=== PATIENT | female | born 1940 ===

== ENCOUNTER 2021-09-14 20:53 | Outpatient (REF) | payer SELFPAY ==
[2021-09-14 21:25] LABS: Abs Immature Grans 0.02 10^3/uL (0.0-0.06); Absolute Basophil Count 0.03 10^3/uL (0.0-0.2); Absolute Eosinophil Count 0.24 10^3/uL (0.0-0.7); Absolute Lymphocyte Count 0.32 10^3/uL (1.2-3.4); Absolute Monocyte Count 0.67 10^3/uL (0.1-0.8); Absolute Neutrophil Count 5.36 10^3/uL (1.2-6.7); Basophils % 0.5; Eosinophils % 3.6; HCT 32.8 % (36.0-46.0); HGB 10.5 g/dL (11.2-15.7); Immature Grans % 0.3; Lymphocytes % 4.8; MCH 32.9 pg (27.0-33.0); MCV 103 fL (80-95); MPV 10.4 fL (8.0-11.0); Monocytes % 10.1; Neutrophils % 80.7; Platelet Count 139 10^3/uL (130-400); RBC 3.19 10^6/uL (3.93-5.22); RDW-SD 64.1 fL; WBC 6.64 10^3/uL (4.4-10.8)
[2021-09-14 22:07] LABS: ALT 23 U/L (14-59); AST 36 U/L (15-37); Albumin 2.9 g/dL (3.4-5.0); Alkaline Phosphatase 268 U/L (46-116); Anion Gap 9.2 mmol/L (3-11); BUN 31 mg/dL (7-18); Bilirubin, Total 0.7 mg/dL (0.2-1.0); CO2 30.8 mmol/L (21.0-32.0); Calcium 8.9 mg/dL (8.5-10.1); Chloride 93 mmol/L (98-107); Estimated GFR 11.73 (mL/min/1.73m2); Glucose 155 mg/dL (74-106); Sodium 133 mmol/L (136-145); Total Protein 6.2 g/dL (6.4-8.2)
[2021-09-15 05:27] LABS: CREATININE 3.7 mg/dL (0.55-1.02)
== END 2021-09-14 20:54 | disposition home or self-care (01) ==
LOC: LBN 20:53
PROVIDERS: Visit Provider Nurse Practitioner Family
DX: N18.6 End stage renal disease (principal); E11.69 Type 2 diabetes mellitus with other specified complication
CPT/HCPCS: 80053; 85025

== ENCOUNTER 2021-10-22 18:13 | Outpatient (REF) | payer MEDICARE, BC, SELFPAY ==
[2021-10-22 19:23] LABS: C Diff PCR Negative (Negative)
== END 2021-10-22 18:14 | disposition home or self-care (01) ==
LOC: LBN 18:13
PROVIDERS: Visit Provider Nurse Practitioner Family
DX: R19.7 Diarrhea, unspecified (principal)
CPT/HCPCS: 87493

== ENCOUNTER → 2021-10-25 13:23 | Outpatient (BNVA) | payer MEDICARE, BC, SELFPAY | PROVIDERS: Visit Provider Surgery | DX: Z45.2 Encounter for adjustment and management of vascular access device (principal) | CPT/HCPCS: 36590; 99204 ==

== ENCOUNTER 2021-11-16 21:17 | Outpatient (REF) | payer MEDICARE, BC, SELFPAY ==
[2021-11-16 22:21] LABS: C Diff PCR Negative (Negative)
== END 2021-11-16 21:18 | disposition home or self-care (01) ==
LOC: LBN 21:17
PROVIDERS: Visit Provider Nurse Practitioner Family
DX: R19.7 Diarrhea, unspecified (principal)
CPT/HCPCS: 87493

== ENCOUNTER 2021-11-29 12:25 | Emergency (ER) | payer MEDICARE, BC, SELFPAY ==
[2021-11-29] VITALS (57 sets, daily range): BP systolic 93–116; BP diastolic 36–79; PULSE 68–198; RESP 16–31; TEMP 36.7; O2SAT 90–98
--- NOTE | 2021-11-29 14:00 | DI.RAD_ITS ---
Exam(s) XR PORTABLE CHEST AP EXAM: XR PORTABLE CHEST AP CLINICAL HISTORY: SOB. TECHNIQUE: 2D digital imaging was performed. COMPARISON: No exams were available for comparison FINDINGS: Single AP portable view. Left of center subcutaneous cardiac loop detector noted. Mild cardiomegaly. The mediastinum is not widened. Mild pulmonary venous hypertension pattern. No brien airspace pulmonary edema. No Celestino B lines. No pleural effusions. IMPRESSION: Mild pulmonary venous hypertension pattern. No brien airspace pulmonary edema. No pleural effusions . DATA REPOSITORY: RADIATION DOSE DELIVERED: All CT scans at this facility use at least one of these dose optimization techniques: automated exposure control; mA and/or kV adjustment per patient size (includes targeted e xams where dose is matched to clinical indication); or iterative reconstruction.
[2021-11-29 14:13] LABS: Abs Immature Grans 0.06 10^3/uL (0.0-0.06); Absolute Basophil Count 0.02 10^3/uL (0.0-0.2); Absolute Eosinophil Count 0.05 10^3/uL (0.0-0.7); Absolute Lymphocyte Count 0.16 10^3/uL (1.2-3.4); Absolute Monocyte Count 0.91 10^3/uL (0.1-0.8); Basophils % 0.3; Eosinophils % 0.7; HCT 32.8 % (36.0-46.0); HGB 10.9 g/dL (11.2-15.7); Immature Grans % 0.8; Lymphocytes % 2.2; MCH 32.7 pg (27.0-33.0); MCHC 33.2 % (32.0-36.0); MCV 99 fL (80-95); MPV 10.3 fL (8.0-11.0); Monocytes % 12.3; Neutrophils % 83.7; Platelet Count 117 10^3/uL (130-400); RBC 3.33 10^6/uL (3.93-5.22); RDW 15.7 % (11.7-14.6); RDW-SD 56.3 fL
[2021-11-29 14:40] LABS: ALT 23 U/L (14-59); AST 26 U/L (15-37); Alkaline Phosphatase 220 U/L (46-116); Anion Gap 8.5 mmol/L (3-11); BUN 49 mg/dL (7-18); Bilirubin, Total 0.6 mg/dL (0.2-1.0); CO2 30.5 mmol/L (21.0-32.0); Calcium 8.7 mg/dL (8.5-10.1); Chloride 93 mmol/L (98-107); Estimated GFR 9.36 (mL/min/1.73m2); Glucose 97 mg/dL (74-106); Magnesium 1.6 mg/dL (1.8-2.4); Potassium 4.3 mmol/L (3.5-5.1); Sodium 132 mmol/L (136-145); Total Protein 6.8 g/dL (6.4-8.2); Troponin I < 50 ng/L (<or=60)
[2021-11-29 14:42] LABS: CREATININE 4.5 mg/dL (0.55-1.02)
[2021-11-29 14:48] LABS: Source Nasal/Nares
--- NOTE | 2021-11-29 14:52 | W.ED.GENAD ---
Discharge Plan Disposition Patient Disposition: [facility] Discharge Details Clinical Impression: Chronic kidney disease, stage 5, COVID-19, Acute respiratory distress, Hypotension Primary Care Provider: Unknown,Unknown ED Provider: Jayy Desir Home Meds and New Rx's Prescriptions: No Action calcitriol 0.25 mcg capsule 0.25 mcg PO .3 times a week Rx Instructions: , and saturday prior to dialysis Allergy Eye (naphazoline-phen) 0.025-0.3 % drops 1 drp ophthalmic (eye) BID-QID PRN Santa-German Rx 1-60-300 mg-mg-mcg tablet 1 tab PO DAILY trazodone 150 mg tablet 75 mg PO QHS PRN trazodone 50 mg tablet 50 mg PO QHS PRN sennosides [Natural Senna Laxative] 8.6 mg tablet 17.2 mg PO BID polyethylene glycol 3350 [Miralax] 17 gram/dose powder 17 g PO DAILY midodrine 10 mg tablet 10 mg PO TID Rx Instructions: do not give last dose of day after 6PM or within 4 hrs of bedtime lidocaine 5 % adhesive patch,medicated 1 patch topical DAILY Rx Instructions: leave on most painful area for up to 12 hrs insulin lispro [Admelog U-100 Insulin lispro] 100 unit/mL solution 1 sliding scale dose subcut USEASDIRECTD cholecalciferol (vitamin D3) 25 mcg (1,000 unit) capsule 25 mcg PO DAILY acetaminophen [Tylenol Extra Strength] 500 mg tablet 1,000 mg PO Q6H PRN melatonin 3 mg tablet 3 mg PO HS PRN lidocaine-prilocaine 2.5-2.5 % cream 1 applic topical ONCE escitalopram oxalate [Lexapro] 10 mg tablet 10 mg PO DAILY levothyroxine 175 mcg capsule 175 mcg PO DAILY Combivent Respimat 20-100 mcg/actuation mist 1 puff inhalation QID Rx Instructions: space evenly during waking hours All Day Allergy (cetirizine) 10 mg capsule 10 mg PO DAILY PRN atorvastatin 40 mg tablet 40 mg PO QHS aripiprazole 5 mg tablet 5 mg PO DAILY simethicone [Gas Relief (simethicone)] 80 mg tablet,chewable 80 mg PO QHS pantoprazole [Protonix] 40 mg tablet,delayed release (DR/EC) 40 mg PO DAILY Sarna Original 0.5-0.5 % lotion 1 applic topical BID Discharge Data Discharge Date/Time-TO BE ENTERED AT DEPARTURE: 11/29/21 20:35 Medical Decision Making 1400 --81-year-old female with multiple medical problems including history of pulmonary hypertension, cardiomyopathy, chronic A. fib, diabetes, chronic kidney disease on hemodialysis, transferred from nursing facility with concern for hypoxia, low blood pressure, altered mentation today, questionable COVID-positive today. Oxygen is a administered nasal cannula and hypoxia improved. Now saturating in the low 90s on 3 L nasal cannula in no respiratory distress. Blood pressure improved without IV fluid. Stat COVID testing was sent. -- --Patient is COVID-positive given oxygen requirement, I will treat with remdesivir 200 mg IV as well as Decadron 6 mg IV. cxr interpreted by radiology: IMPRESSION: Mild pulmonary venous hypertension pattern.? No brien airspace pulmonary edema.? No pleural effusions. Consider acute pulmonary embolism. Plan to obtain CT of the chest. -- The radiologist recommended that I speak with nephrology to confirm that the patient could in fact have contrast. I spoke with Dr. Vidal, nephrology at [facility], and she knows the patient well and agrees that contrast is appropriate with no concerns. Plan to proceed with CT as ordered. 1715 --[facility] at [facility] cannot accept the patient in transfer. I called [facility] transfer center to request transfer. Awaiting callback. CT chest pending. Patient reassessed and mentating well on reassessment, patient respiratory status is stable saturating 100% on HPI General Mode of arrival: ambulatory. Date/Time Provider Initiated Documentation: 11/29/21 12:56. Limitations to Documentation: altered mental status. Information obtained by: patient and EMS. HPI Narrative: 81-year-old female with multiple medical problems including history of chronic A. fib, cardiomyopathy, atherosclerotic heart disease, chronic kidney disease on hemodialysis, pulmonary hypertension, diabetes, here with chief complaint of shortness of breath. Patient notes shortness of breath and difficulty breathing that is severe. History and review of systems is limited as patient is fatigued with altered mentation. Per nursing, nursing facility staff had stated that patient was COVID-negative and also later noted that she was COVID-positive. [facility] staff concerned complaining of shortness of breath and was found to be hypoxic(saturating in the 80s) and have lopw BP (sbp 89).. They note that she was more confused today. Patient apparently missed dialysis last week due to diarrhea. She did go to dialysis today but was only able to complete 3 to 4 hours. Related Data Home Medications Medication Instructions Recorded Confirmed acetaminophen 500 mg tablet 1,000 mg PO Q6H PRN 10/17/21 10/26/21 (Tylenol Extra Strength) aripiprazole 5 mg tablet 5 mg PO DAILY 10/17/21 10/26/21 atorvastatin 40 mg tablet 40 mg PO QHS 10/17/21 10/26/21 camphor-menthol 0.5 %-0.5 % lotion 1 applic topical BID 10/17/21 10/26/21 (Sarna Original) cetirizine 10 mg capsule (All Day 10 mg PO DAILY PRN 10/17/21 10/26/21 Allergy (cetirizine)) cholecalciferol (vitamin D3) 25 25 mcg PO DAILY 10/17/21 10/26/21 mcg (1,000 unit) capsule escitalopram oxalate 10 mg tablet 10 mg PO DAILY 10/17/21 10/26/21 (Lexapro) insulin lispro 100 unit/mL 1 sliding scale dose subcut 10/17/21 10/26/21 subcutaneous solution (Admelog USEASDIRECTD U-100 Insulin lispro) ipratropium 20 mcg-albuterol 100 1 puff inhalation QID 10/17/21 10/26/21 mcg/actuation mist for inhalation (Combivent Respimat) levothyroxine 175 mcg capsule 175 mcg PO DAILY 10/17/21 10/26/21 lidocaine 5 % topical patch 1 patch topical DAILY 10/17/21 10/26/21 lidocaine-prilocaine 2.5 %-2.5 % 1 applic topical ONCE 10/17/21 10/26/21 topical cream melatonin 3 mg tablet 3 mg PO HS PRN 10/17/21 10/26/21 midodrine 10 mg tablet 10 mg PO TID 10/17/21 10/26/21 naphazoline 0.025 %-pheniramine 1 drp ophthalmic (eye) BID-QID PRN 10/17/21 10/26/21 0.3 % eye drops (Allergy Eye (naphazoline-pheniramine)) pantoprazole 40 mg tablet,delayed 40 mg PO DAILY 10/17/21 10/26/21 release (Protonix) polyethylene glycol 3350 17 17 g PO DAILY 10/17/21 10/26/21 gram/dose oral powder (Miralax) sennosides 8.6 mg tablet (Natural 17.2 mg PO BID 10/17/21 10/26/21 Senna Laxative) simethicone 80 mg chewable tablet 80 mg PO QHS 10/17/21 10/26/21 (Gas Relief (simethicone)) trazodone 150 mg tablet 75 mg PO QHS PRN 10/17/21 10/26/21 trazodone 50 mg tablet 50 mg PO QHS PRN 10/17/21 10/26/21 vitamin B comp no.3-folic acid 1 1 tab PO DAILY 10/17/21 10/26/21 mg-vit C 60 mg-biotin 300 mcg tablet (Santa-German Rx) calcitriol 0.25 mcg capsule 0.25 mcg PO .3 times a week 10/25/21 10/26/21 Allergies Allergy/AdvReac Type Severity Reaction Status Date / Time aspirin AdvReac Unknown Verified 10/25/21 13:28 General Stated Complaint: GenMedical KARINE: 3 Review of Systems All systems reviewed & are unremarkable except as noted in HPI and below Constitutional Constitutional: Denies fever(s) Cardiovascular Cardiovascular: Reports dyspnea Respiratory Respiratory: Reports dyspnea PFSH All Active Problems (Updated 11/29/21 @ 20:25 by Jayy Desir DO) COVID-19 (Acute) Acute respiratory distress (Acute) Hypotension (Acute) Type 2 diabetes mellitus (Acute) Pulmonary hypertension (Acute) Coagulation defect (Acute) Chronic a-fib (Acute) Cardiomyopathy (Acute) Atherosclerotic heart disease (Acute) Anemia (Chronic) Chronic kidney disease, stage 5 (Acute) Medical History Anxiety Depression Hyperlipidemia Hypothyroid Obesity Social History Smoking/Tobacco Use Status: Unknown Smoking risk assessment performed?: Yes Do you feel safe at home: Yes Exam Const General: cooperative, no acute distress and ill appearing Nutritional Appearance: well nourished Orientation: alert, oriented to person, not oriented to place, not oriented to time and confused HENMT Mouth: moist mucous membranes Eyes Conjunctivae: normal conjunctivae Sclera: normal sclerae Neck Neck: trachea midline and supple Resp Effort & Inspection: not labored Auscultation: rales bilaterally and no rhonchi Cardio Rate: regular rate and not tachycardic Rhythm: regular rhythm GI Palpation: soft, not firm, no guarding, no masses, not rigid and nontender Skin General skin exam: no rashes or lesions noted Neuro General: patient alert, patient awake, oriented Patient Orientation: Person and Confused and tone normal Cognition: abnormal cognition Other: Hortensia Extrem General: no calf tenderness and no edema Psych Appearance: grossly normal Mental Status: mental status grossly normal Course Vital Signs Vital signs: Vital Signs Temperature 36.7 C 11/29/21 12:27 Pulse 75 11/29/21 12:27 Respiratory Rate 26 H 11/29/21 12:27 Blood Pressure 99/51 L 11/29/21 12:27 Pulse Oximetry 90 L 11/29/21 12:27 Temperature 36.7 C 11/29/21 12:27 Temperature Source Temporal Artery Scan 11/29/21 12:27 Pulse 68 11/29/21 14:47 Pulse 104 H 11/29/21 14:47 Respiratory Rate 24 11/29/21 14:47 Respiratory Effort 11/29/21 12:42 Respiratory Depth Shallow 11/29/21 12:42 Blood Pressure 112/36 L 11/29/21 14:47 Blood Pressure Mean 57 11/29/21 14:47 Blood Pressure Position Supine 11/29/21 12:27 Pulse Oximetry 90 L 11/29/21 12:27 Oxygen Delivery Method Room Air 11/29/21 12:27 Oxygen Flow Rate 0 11/29/21 12:27 Lab/Test Results Lab/Test Results: 11/29/21 13:30 Blood Blood Culture - Pending 11/29/21 13:57 Blood Blood Culture - Pending Laboratory Tests Range/Units 11/29/21 11/29/21 11/29/21 13:30 13:30 14:45 WBC (4.4-10.8) 10^3/uL 7.40 RBC (3.93-5.22) 10^6/uL 3.33 L Hgb (11.2-15.7) g/dL 10.9 L Hct (36.0-46.0) % 32.8 L MCV (80-95) fL 99 H MCH (27.0-33.0) pg 32.7 MCHC (32.0-36.0) % 33.2 RDW (11.7-14.6) % 15.7 H Plt Count (130-400) 10^3/uL 117 L MPV (8.0-11.0) fL 10.3 Immature Gran % 0.8 Neutrophils % 83.7 Lymphocytes % 2.2 Monocytes % 12.3 Eosinophils % 0.7 Basophils % 0.3 Nucleated RBC % (0.0-0.3) % 0.0 Absolute Neutrophils (1.2-6.7) 10^3/uL 6.20 Absolute Lymphocytes (1.2-3.4) 10^3/uL 0.16 L Absolute Monocytes (0.1-0.8) 10^3/uL 0.91 H Absolute Eosinophils (0.0-0.7) 10^3/uL 0.05 Absolute Basophils (0.0-0.2) 10^3/uL 0.02 Sodium (136-145) mmol/L 132 L Potassium (3.5-5.1) mmol/L 4.3 Chloride (98-107) mmol/L 93 L Carbon Dioxide (21.0-32.0) mmol/L 30.5 Anion Gap (3-11) mmol/L 8.5 BUN (7-18) mg/dL 49 H Creatinine (0.55-1.02) mg/dL 4.5 H* Estimated GFR/1.73 m2 (mL/min/1.73m2) 9.36 Glucose (74-106) mg/dL 97 Calcium (8.5-10.1) mg/dL 8.7 Magnesium (1.8-2.4) mg/dL 1.6 L Total Bilirubin (0.2-1.0) mg/dL 0.6 AST (15-37) U/L 26 ALT (14-59) U/L 23 Alkaline Phosphatase (46-116) U/L 220 H Troponin I (<or=60) ng/L < 50 Total Protein (6.4-8.2) g/dL 6.8 Albumin (3.4-5.0) g/dL 3.0 L COVID-19 Source Nasal/Nares Sign Out Sign Out Data: Sign Out Comment: Follow-up on transfer placement for treatment of COVID, CHF in setting of end-stage renal disease on hemodialysis. Last updated by Leland Baird MD at 11/29/21 17:44
--- NOTE | 2021-11-29 15:00 | DI.CT_ITS ---
Exam(s) CT CHEST PE CTA EXAM: CT CHEST PE CTA CLINICAL HISTORY: shortness of breath, low bp. TECHNIQUE: Imaging Protocol: Axial CT angiography was performed with multi-slice acquisition and mu lti-planar and/or 3D reconstructions. CONTRAST MATERIAL: Intravenous: Omnipaque 350 Contrast volume:structured data in ml COMPARISON: No exams were available for comparison FINDINGS: CT angiography of the chest was performed with intravenous infusion of 82 cc of Omnipaque 350. There is mild cardiomegaly. Note is made of coronary artery calcification. There is an apparent implantable device in the right ventricular apex, please correlate with cardiology history. There is a poor inspiration with some crowding of pulmonary vessels. Small right pleural effusion no patsy. No gross pulmonary edema or focal consolidation.. Tracheobronchial tree appears intact. No evidence of pulmonary embolic disease. Thoracic aorta is of normal diameter, no thoracic aortic an eurysm or dissection, major branch vessels appear intact. No mediastinal or hilar adenopathy. Images obtained through the upper abdomen show unremarkable appearance of the visualized portions of the liver, the spleen appears mildly enlarged.. IMPRESSION: Cardiomegaly.. No evidence of pulmonary embolic disease. Implantable device in right ventricular apex, please correlate with a prior cardiology history. RADIATION DOSE DELIVERED: 363.25mGy.cm Total DLP 363.25mGy.cm Total DLP !Error CTDIvol DATA REPOSITORY: All CT scans at this facility are submitted to the National Radiology Data Registry (NRDR) Dose Index Registry (DIR) with the [employer] (ACR). RADIATION OPTIMIZATION: All CT scans at this facility use at least one of these dose optimization te chniques: automated exposure control; mA and/or kV adjustment per patient size (includes targeted exa ms where dose is matched to clinical indication); or iterative reconstruction.
[2021-11-29 15:21] LABS: Lactate 1.6 mmol/L (0.6-1.4)
[2021-11-29 15:28] LABS: COVID-19 PCR POSITIVE (Negative)
[2021-11-29] MEDS: Dexamethasone 10 MG/ML VIAL 6 MG IVP (15:38)
[2021-11-29] MEDS: REMDESIVIR 200 MG in Normal Saline 250 ML 250 MG IVPB (15:42)
--- NOTE | 2021-11-29 16:54 | NUR.NOTE ---
Nursing Note: PT HAS BELONGINGS WITH HER, DENIES CURRENT COMPLAINTS, REPEAT TROP DRAWN & SENT TO LAB, PT TO DI FOR ORDERED EXAM VIA STRETCHER.
[2021-11-29] MEDS: Omnipaque 350 MG/ML 100 ML BTL IJ (17:10)
--- NOTE | 2021-11-29 17:28 | NUR.NOTE ---
Nursing Note: SPOKE W/PT DAUGHTER, ASSISTED PT W/CELL PHONE TO SPEAK W/DAUGHTER. LAB IN TO REDRAW BLOOD D/T HEMOLYZED.
--- NOTE | 2021-11-29 17:47 | DI.VRAD_ITS ---
PROCEDURE INFORMATION: Exam: CTA Chest With Contrast Exam date and time: 11/29/2021 4:45 PM Age: 81 years old Clinical indication: Other: Shortness of breath, low BP TECHNIQUE: Imaging protocol: Computed tomographic angiography of the chest with contrast. 3D rendering (Not supervised by radiologist): MIP and/or 3D reconstructed images were created by the technologist. Contrast material: 350; Contrast volume: 82 ml; Contrast route: INTRAVENOUS (IV); COMPARISON: CR XR PORTABLE CHEST AP 11/29/2021 2:10 PM FINDINGS: Pulmonary arteries: No filling defects within the pulmonary arteries are identified to suggest pulmonary embolism. There is mild dilatation of the central pulmonary arteries with the main pulmonary artery having a diameter of 3.7 cm suggesting history of pulmonary hypertension. Aorta: There is moderate atherosclerotic calcification throughout the thoracic aorta and arch vessels. There is no evidence for aortic aneurysm or dissection. Veins: There is large amount of reflux of contrast into the internal jugular vein as well as numerous small anterior, posterior and lateral left chest wall collaterals. Lungs: There are mild patchy ground-glass opacities throughout the lungs with regions of superimposed mild interlobular septal thickening. There are multifocal regions of subsegmental atelectasis within the lung bases as well as within the medial upper lobes. There are scattered small subcentimeter calcified pulmonary granulomas. Pleural spaces: There is a tiny layering right pleural effusion. Heart: There is [id number] cardiomegaly. There is moderate to severe coronary artery calcification. No pericardial effusion is identified. There is a 1.1 x 2.8 cm hyperdense electronic device within the lumen of the right ventricle near the cardiac apex, as seen on image 361, series 6, which appears to represent a loop recorder. Lymph nodes: There is no evidence of lymphadenopathy. Liver: The liver demonstrates a mildly lobular contour, suggesting cirrhotic change. Bones/joints: There appear to be anterior bridging syndesmophytes at multiple mid and lower thoracic levels suggesting sequela of seronegative spondyloarthropathy. There is multilevel moderate spondylosis of the lower thoracic and upper lumbar spine. No acute fractures or subluxations are identified. Soft tissues: Unremarkable. IMPRESSION: 1. No pulmonary embolism identified. 2. Findings suggestive of mild CHF including cardiomegaly, tiny right pleural effusion as well as mild interstitial opacities within the lungs which may represent mild interstitial pulmonary edema. 3. Mild dilatation of the central pulmonary arteries suggesting history of pulmonary hypertension. 4. There is a 1.1 x 2.8 cm electronic device within the right ventricle in the region of the cardiac apex, which may represent a loop recorder. Recommend clinical correlation for history of implanted devices. Consultation with cardiology service should be considered. Findings were discussed with ADRIANA DASH at 11/29/2021 5:44 PM EDT. Dictated and Authenticated by: Diogenes Reich MD. Ordering:JASON Ha MD
[2021-11-29 17:53] LABS: Troponin I < 50 ng/L (<or=60)
--- NOTE | 2021-11-29 20:25 | ED.PROG_ITS ---
Date of service: 11/29/21 Time of Service: 20:25 Medical Decision Making Case is signed out to me by my colleague Dr. Leland Baird pending disposition. Please refer to his HPI, physical exam, assessment and plan. Brief summary, the patient is COVID-positive, and she required supplemental oxygen upon her arriva l, she was hypoxic and hypotensive initially. She is now mentating well, blood pressure stable, oxygenation stable on 3 L. We did contact the diploma medical assistant at the [facility], as well as the hospitalist Dr Lopez, who accepted the patient to the medicine hospitalist team. Patient remained stable here. Transfer was facilitated. I have extensively reviewed the treatment plan with the patient. I have addressed all patient concerns at this time. I have also discussed the plan with the admitting physician and they agree with the current assessment and plan and have agreed to assume responsibility for the patient. All parties demonstrate verbal understanding and agreement with our assessment and plan at this time. The documentation in this chart was dictated using [employer] dictation software. Please excuse any dictation errors. Sign Out Sign Out Data: Sign Out Comment: Follow-up on transfer placement for treatment of COVID, CHF in setting of end-stage renal disease on hemodialysis. Last updated by Leland Baird MD at 11/29/21 17:44 Discharge Plan Disposition Patient Disposition: [facility] Discharge Details Clinical Impression: Chronic kidney disease, stage 5, COVID-19, Acute respiratory distress, Hypotension Primary Care Provider: Unknown,Unknown ED Provider: Jayy Desir Home Meds and New Rx's Prescriptions: No Action calcitriol 0.25 mcg capsule 0.25 mcg PO .3 times a week Rx Instructions: , and saturday prior to dialysis Allergy Eye (naphazoline-phen) 0.025-0.3 % drops 1 drp ophthalmic (eye) BID-QID PRN Santa-German Rx 1-60-300 mg-mg-mcg tablet 1 tab PO DAILY trazodone 150 mg tablet 75 mg PO QHS PRN trazodone 50 mg tablet 50 mg PO QHS PRN sennosides [Natural Senna Laxative] 8.6 mg tablet 17.2 mg PO BID polyethylene glycol 3350 [Miralax] 17 gram/dose powder 17 g PO DAILY midodrine 10 mg tablet 10 mg PO TID Rx Instructions: do not give last dose of day after 6PM or within 4 hrs of bedtime lidocaine 5 % adhesive patch,medicated 1 patch topical DAILY Rx Instructions: leave on most painful area for up to 12 hrs insulin lispro [Admelog U-100 Insulin lispro] 100 unit/mL solution 1 sliding scale dose subcut USEASDIRECTD cholecalciferol (vitamin D3) 25 mcg (1,000 unit) capsule 25 mcg PO DAILY acetaminophen [Tylenol Extra Strength] 500 mg tablet 1,000 mg PO Q6H PRN melatonin 3 mg tablet 3 mg PO HS PRN lidocaine-prilocaine 2.5-2.5 % cream 1 applic topical ONCE escitalopram oxalate [Lexapro] 10 mg tablet 10 mg PO DAILY levothyroxine 175 mcg capsule 175 mcg PO DAILY Combivent Respimat 20-100 mcg/actuation mist 1 puff inhalation QID Rx Instructions: space evenly during waking hours All Day Allergy (cetirizine) 10 mg capsule 10 mg PO DAILY PRN atorvastatin 40 mg tablet 40 mg PO QHS aripiprazole 5 mg tablet 5 mg PO DAILY simethicone [Gas Relief (simethicone)] 80 mg tablet,chewable 80 mg PO QHS pantoprazole [Protonix] 40 mg tablet,delayed release (DR/EC) 40 mg PO DAILY Sarna Original 0.5-0.5 % lotion 1 applic topical BID
--- NOTE | 2021-11-29 20:59 | NUR.NOTE ---
[facility] med-surg called back, report was given to Dotty BUSH.
== END 2021-11-29 20:35 ==
PROVIDERS: Student in an Organized Health Care Education/Training Program; Emergency Provider Student in an Organized Health Care Education/Training Program
DX: U07.1 COVID-19 (principal); E11.22 Type 2 diabetes mellitus with diabetic chronic kidney disease; N18.5 Chronic kidney disease, stage 5; R06.03 Acute respiratory distress; I95.9 Hypotension, unspecified; I25.10 Atherosclerotic heart disease of native coronary artery without angina pectoris; I48.20 Chronic atrial fibrillation, unspecified; Z99.2 Dependence on renal dialysis; Z79.4 Long term (current) use of insulin
CPT/HCPCS: 36415; 71275; 80053; 87040; 87635; 96365; 96366; 96375; 99285; 71045; 83605; 83735; 84484; 85025; J0248; J1100; J3490